=== PATIENT | female | born 1965 | race American Indian/Alaskan Native ===

== ENCOUNTER 2016-11-08 14:40 | Inpatient (IN) | payer OTHER ==
[2016-11-08] MEDS ORDERED: MORPHINE IV ONE (15:37)
[2016-11-08] MEDS ORDERED: ZOFRAN IV ONE (15:37)
[2016-11-08] MEDS ORDERED: NACL 0.9% 500 ML 500 ML IV ONE (15:37)
[2016-11-08 16:24] LABS: Basophils % (Auto) 0.3 % (0.0-1.8); Eosinophils % (Auto) 0.5 % (0.0-4.3); Hematocrit 23.4 % (30.3-42.9); Hemoglobin 7.2 gm/dl (10.1-14.3); Mean Corpuscular HGB Conc 31 % (30-34); Mean Corpuscular Hemoglobin 29 pg (28-32); Mean Corpuscular Volume 92 fl (79-97); Platelet Count 123 K/mm3 (140-440); Red Blood Count 2.54 M/mm3 (3.65-5.03); White Blood Count 7.9 K/mm3 (4.5-11.0)
[2016-11-08 16:25] LABS: Red Cell Distribution Width 20.8 % (13.2-15.2)
[2016-11-08 16:27] LABS: Anion Gap 19 mmol/L; Blood Urea Nitrogen 9 mg/dL (7-17); Calcium 9.4 mg/dL (8.4-10.2); Carbon Dioxide 28 mmol/L (22-30); Chloride 85.8 mmol/L (98-107); Glucose 102 mg/dL (65-100); Potassium 3.5 mmol/L (3.6-5.0); Sodium 129 mmol/L (137-145)
--- NOTE | 2016-11-08 17:34 | Emergency Department Report ---
HPI - General Chief Complaint: Chest Pain Time Seen by Provider: 11/08/16 15:21 - HPI HPI: The patient is a 51-year-old female with a significant history of stage 4 metastatic lung cancer, who presents for evaluation of chest pain. The patient reports constant chest pain since 1 PM earlier today, approximately 2 hours prior to my evaluation, constant since onset, midsternal in location, pressure- like in quality, 10/10 in severity. The patient denies trauma to the chest wall , fever, cough, dyspnea, syncope, hemoptysis, unilateral leg swelling, recent immobilization. ED Past Medical Hx - Past Medical History Hx of Cancer: Yes (brain, lung, pancreatic) - Social History Smoking Status: Never Smoker Substance Use Type: None - Medications Home Medications: Home Medications Medication Instructions Recorded Confirmed Last Taken Type Diltiazem [CarDIZEM] 60 mg PO TID 11/08/16 11/08/16 Unknown History HYDROmorphone [Dilaudid] 2 mg PO Q4HR 11/08/16 11/08/16 Unknown History LORazepam [Ativan] 1 mg PO TID PRN 11/08/16 11/08/16 Unknown History Metoclopramide [Reglan] 10 mg PO TID PRN 11/08/16 11/08/16 Unknown History Metoprolol [Lopressor] 25 mg PO BID 11/08/16 11/08/16 Unknown History ED Review of Systems ROS: Stated complaint: CHEST PAIN Other details as noted in HPI Constitutional: denies: fever ENT: denies: throat or neck pain Respiratory: denies: cough, shortness of breath Cardiovascular: reports: chest pain Endocrine: denies unexplained weight loss or gain Gastrointestinal: denies: abdominal pain, nausea Genitourinary: denies: dysuria Musculoskeletal: denies: leg swelling Skin: denies: rash Neurological: denies: headache Hematological/Lymphatic: denies: easy bleeding or easy bruising Psych: denies sadness or hopelessness Physical Exam - Physical Exam Vital Signs: Vital Signs 11/08/16 11/08/16 11/08/16 15:06 15:53 16:01 Temperature 97.3 F L Pulse Rate 132 H 138 H Respiratory 18 22 21 Rate Blood Pressure 105/63 Blood Pressure 118/72 [Left] O2 Sat by Pulse 95 97 97 Oximetry Physical Exam: General: well-nourished, well-developed, no acute distress Head: Normocephalic, atraumatic Eyes: normal sclera ENT: Mucous membranes are pink and moist Neck: trachea midline, neck supple, No neck stiffness, no cervical adenopathy Respiratory: Diminished breath sounds in crackles present to right lower lung field Cardio: S1 and S2 present, no murmurs, rubs, gallops, capillary refill is brisk Abdomen: Normoactive bowel sounds, soft abdomen, no rigidity, no guarding or rebound tenderness Chest WALL/Back: No tenderness to palpation of the chest wall, no CVA tenderness with percussion Musc: No pitting edema Skin: No rash Neuro: no facial drooping, normal speech Psych: Normal affect ED Course Vital Signs 11/08/16 11/08/16 11/08/16 15:06 15:53 16:01 Temperature 97.3 F L Pulse Rate 132 H 138 H Respiratory 18 22 21 Rate Blood Pressure 105/63 Blood Pressure 118/72 [Left] O2 Sat by Pulse 95 97 97 Oximetry ED Medical Decision Making - Lab Data Result diagrams: 11/08/16 15:50 11/08/16 15:50 - Medical Decision Making The patient was seen and examined by myself. The patient is placed on a monitor technician and continuous pulse ox. On initial evaluation, the patient was found to be in no distress. Evaluation orders were placed. X-ray of the chest reveals significant right lower pleural effusion and atelectasis of the right lower and middle lung lobes. The patient is given IV morphine for pain. Lab results reveal low hemoglobin of 7.2, and otherwise lab results were grossly unrevealing. The patient was reevaluated and reported the pain persisted. She is given a IV dose of fentanyl for pain. The on-call hospitalist service was contacted. They agreed to admit the patient for further treatment and close monitoring. The ED admit order was placed. The patient was admitted in guarded condition. Critical care attestation.: If time is entered above; I have spent that time in minutes in the direct care of this critically ill patient, excluding procedure time. ED Disposition Clinical Impression: Recurrent right pleural effusion, Atelectasis of right lung, Severe anemia Disposition: OP ADMITTED IP TO THIS HOSP Is pt being admited?: Yes Does the pt Need Aspirin: Yes Condition: Fair Instructions: Chest Pain (ED) Referrals: PRIMARY CARE, [Primary Care Provider] - 3-5 Days Time of Disposition: 17:34
[2016-11-08] MEDS ORDERED: NACL ONE (17:44)
[2016-11-08] MEDS ORDERED: BABY ASPIRIN PO ONE (18:12)
--- NOTE | 2016-11-08 18:28 | Cat Scan Report ---
FINAL REPORT EXAM: CT ANGIO CHEST HISTORY: chest pain, hx lung cancer, RLL collapse 09/2016 TECHNIQUE: CT imaging obtained through the chest in pulmonary angiographic phase following intravenous administration of contrast. Transaxial, Coronal and sagittal reformats are provided. PRIORS: None. FINDINGS: Large left thyroid nodule. Main pulmonary artery is within normal limits in caliber. Well opacified pulmonary arterial tree. No pulmonary embolism identified Thoracic aorta is normal in course and caliber. Moderate right pleural effusion. Right middle and lower lobar atelectasis. Marked narrowing of the bronchus intermedius and occlusion of the lower and middle lobe airways. Sub carinal lymphadenopathy. No pneumothorax. Imaged portion of the upper abdomen is remarkable for metastatic disease involving the left adrenal gland and possibly the pancreas. A gastrostomy tube is present. The gallbladder is hydropic with layering sludge. The superficial soft tissues are unremarkable. No acute bony abnormality or worrisome osseous lesions identified. IMPRESSION: No pulmonary embolism. Metastatic lung cancer complicated by right middle and right lower lung collapse. There is a moderate right pleural effusion. Additional details and description as above. Correlation with prior imaging is requested.
--- NOTE | 2016-11-08 18:37 | Admit Criteria Form ---
Admission Criteria Documentation: PLEURAL EFFUSION Clinical Indications for Admission to Inpatient Care (Place 'X' for any and all applicable criteria): Admission is indicated for ANY ONE of the following (1)(2)(3): [ ]I. Pneumonia-related effusion requiring drainage as indicated by ANY ONE of the following [A]: [ ]a) Large pleural effusion (symptomatic or greater than one-half of hemithorax) [ ]b) Loculated effusion [ ]c) Pleural thickening [ ]d) Pleural fluid analysis results, including ANY ONE of the following: [ ]i) Positive Gram stain or culture for bacteria [ ]ii) Pus [ ]iii) pH less than 7.20 [X]II. Inpatient admission required rather than observation care (Also use Pleural Effusion: Observation Care criteria as appropriate) because of ANY ONE of the following: [ ]a) Hemodynamic instability that is severe or persistent [ ]b) Respiratory distress that is severe or persistent [ ]c) Complication of drainage (e.g., pneumothorax) that requires inpatient care [ ]d) Etiology that requires inpatient care (e.g., pulmonary embolism , trauma) [X]e) Severe pain requiring acute inpatient management [ ]f) Supplemental O2 or respiration drug for over 24 hrs that are performable only in an inpatient setting [ ]g) Chest tube placement with active evacuation (e.g., suction, drainage) [ ]h) Pulmonary artery catheter monitoring [ ]i) Epidural analgesia (8) [ ]j) Continuous IV infusion of anticoagulation, platelet inhibitor, vasoactive, or antiarrhythmic medication. [ ]k) Other condition, treatment or monitoring requiring inpatient admission [ ]l) Immediate inpatient surgery [ ]III. Hemothorax [ ]IV. Empyema [ ]V. Pleural effusion with concomitant pneumothorax [X]. Recurrent or malignant pleural effusion requiring pleurodesis (4) Extended stay beyond goal length of stay may be needed for (27)(28): [ ]a) Empyema or complicated parapneumonic effusion (24)(29) [ ]b) Malignant pleural effusion (4) [ ]c) Pleural effusion due to trauma or perforated esophagus [ ]d) Pleural effusion due to pulmonary embolism (30) [ ]e) Clinically significant re-expansion pulmonary edema [ ]f) Hemothorax [ ]g) Renal failure [ ]h) Trapped lung (e.g., benign or malignant thickened pleura preventing lung re-expansion) (31) [ ]i) Underlying etiology necessitates ongoing inpatient care (e.g., pneumonia, heart failure, malignancy) [ ]j) Complications of thoracentesis, thoracostomy tube, or pleural cath. placement The original [facility] [employer] content created by [facility] [employer] has been revised. The portions of the content which have been revised are identified through the use of italic text or in bold, and [facility] has neither reviewed nor approved the modified material. All other unmodified content is copyright [facility] [employer]. Please see references footnoted in the original [facility] [employer] edition 2016 Admission Criteria Met: Yes
[2016-11-08] MEDS ORDERED: SUBLIMAZE IV ONE ×2 (19:33→20:00)
[2016-11-08] MEDS ORDERED: LOPRESSOR IV ONE ×2 (20:31→20:32)
[2016-11-09] MEDS: MORPHINE IV PRN ×4 (01:04→18:09)
[2016-11-09] MEDS ORDERED: NACL 0.9% 1000 ML 1,000 ML IV ONE (03:53)
[2016-11-09] MEDS ORDERED: SODIUM CHLORIDE FLUSH SYRINGE 10 ML IV PRN (03:55)
--- NOTE | 2016-11-09 03:55 | Event Note ---
Date: 11/08/16 See H/p in reports Chest pain -r/o PR Lung Ca with mets-Full code Recent XRT to Brain Hyponatremia Hypokalemia-supplemented
[2016-11-09 07:22] LABS: Creatine Kinase 67 units/L (30-135)
--- NOTE | 2016-11-09 07:23 | XRay Report ---
Single view chest: History: Chest pain. Findings: Cardiomegaly. Right heart border obscured by density right lower lobe probably from atelectasis and/or right pleural effusion. Tip of right central line in the superior vena cava. Impression: Findings as detailed above.
[2016-11-09 07:32] LABS: Creatine Kinase MB < 1.0 ng/mL (0.0-4.0)
[2016-11-09] MEDS ORDERED: NACL 0.9% 500 ML 500 ML IV ONE (08:20)
[2016-11-09] MEDS ORDERED: K-DUR PO ONE (08:32)
[2016-11-09] MEDS ORDERED: ATIVAN PO PRN (08:54)
[2016-11-09] MEDS ORDERED: REGLAN PO PRN (08:54)
--- NOTE | 2016-11-09 09:19 | History and Physical Report ---
CHIEF COMPLAINT: Chest pain since 1 p.m. HISTORY OF PRESENT ILLNESS: A 51-year-old female with stage IV metastatic neuroendocrine lung cancer, presents for evaluation of chest pain. Constant chest pain in the retrosternal, not radiating. Pain is about 10 on a scale of 10. No trauma. No shortness of breath. No chest wall tenderness present. No reflux. The patient has been getting radiation therapy till August and also chemotherapy till 05/2016. The patient follows up for lung cancer at [facility] in [place]. The patient is a full code. No prior cardiac history. No palpitations. No diaphoresis. SILVIA score is zero. PAST MEDICAL HISTORY: Significant for lung cancer with metastasis to the brain. SOCIAL HISTORY: Does not smoke, has 4 daughters, lives with them. PAST SURGICAL HISTORY: None. FAMILY HISTORY: Hypertension. CURRENT MEDICATIONS: Diltiazem 60 mg 3 times a day, Dilaudid 2 mg every 4 hours, lorazepam 1 mg p.o. t.i.d., Lopressor 25 mg p.o. b.i.d., Reglan 10 mg p.o. t.i.d. REVIEW OF SYSTEMS: CONSTITUTIONAL: Lost her hair and lost weight recently. No fever, no chills. HEENT: The patient has lost all her hair secondary to chemo and radiation therapy. The patient also had gamma radiation to the brain. NECK: No neck stiffness. CARDIOVASCULAR: Chest pain, retrosternal since 1:00 p.m. Pain is about 10/10. No diaphoresis. No palpitations. RESPIRATORY: No shortness of breath. No cough. GASTROINTESTINAL: No nausea, no vomiting, no diarrhea. GENITOURINARY: No dysuria, no flank pain. MUSCULOSKELETAL: No leg pains or muscle pains. SKIN: No rashes. CENTRAL NERVOUS SYSTEM: No syncope, no seizures. HEMATOLOGIC AND LYMPHATIC: No easy bleeding or bruising. PSYCHIATRIC: Denies anxiety and denies homicidal or suicidal ideation. A 14-point review of systems is done; otherwise, negative. PHYSICAL EXAMINATION: GENERAL: Middle-aged female, lying in bed quietly. VITAL SIGNS: Temperature is 97.3, pulse is 132, respirations are 18, and blood pressure is 105/63. HEENT: The patient is bald secondary to chemo and radiation therapy. Tongue is moist. NECK: Supple, no lymphadenopathy, no thyromegaly. CHEST: Lungs are clear to auscultation and percussion. Good air entry. CARDIOVASCULAR: S1, S2 heard. No gallop, no murmur, no rub. Apical impulse in left fifth intercostal space and midclavicular line. ABDOMEN: Soft and benign. No hepatosplenomegaly. No guarding, no rigidity. Hernial orifices are normal. EXTREMITIES: Good pedal pulses. No pedal edema. CENTRAL NERVOUS SYSTEM: Alert and oriented x 4. Nonfocal exam. SKIN: Normal. IMAGING AND LABORATORY DATA: Chest x-ray shows significant right pleural effusion and atelectasis of the right lower and middle lung lobe. No EKG was done. Labs shows significant for sodium of 129, potassium of 3.5, chloride of 85, bicarbonate of 28, BUN and creatinine of 9 and 0.3. Hemoglobin is 7.8, hematocrit is 23.4. ASSESSMENT AND PLAN: 1. Chest pain, rule out myocardial infarction, chest pain protocol. The patient did get Lexiscan in the morning. 2. Anemia secondary to lung cancer and metastasis; transfuse 1 unit of blood. 3. Hyponatremia, should correct with IV fluids. 4. Hypokalemia, supplemented. 5. Lung cancer with metastasis, discouraged about possible DNR and hospice. The family absolutely wants everything to be done, they do not want to discuss. 6. Deep venous thrombosis prophylaxis, Lovenox 40 mg subcutaneous daily. JOB# [id number] VSM/NTS
[2016-11-09 09:54] LABS: Anion Gap 17 mmol/L; Blood Urea Nitrogen 9 mg/dL (7-17); Calcium 8.9 mg/dL (8.4-10.2); Carbon Dioxide 27 mmol/L (22-30); Chloride 94.1 mmol/L (98-107); Glucose 91 mg/dL (65-100); Potassium 3.4 mmol/L (3.6-5.0); Sodium 135 mmol/L (137-145)
[2016-11-09] MEDS: LOPRESSOR PO SCH ×2 (13:00→23:19)
[2016-11-09] MEDS: CARDIZEM PO SCH ×2 (13:45→23:14)
[2016-11-09] MEDS ORDERED: NACL 0.9% 500 ML 500 ML ONE (13:57)
[2016-11-09] MEDS: DILAUDID PO SCH ×4 (14:10→23:13)
[2016-11-09] MEDS ORDERED: SIMPLE SYRUP FEEDTUBE PRN ×2 (14:52)
[2016-11-09] MEDS ORDERED: PANCREAZE DR 10,500 UNIT FEEDTUBE PRN (14:52)
[2016-11-09] MEDS ORDERED: SODIUM BICARBONATE FEEDTUBE PRN (14:52)
--- NOTE | 2016-11-09 15:28 | Progress Note ---
Assessment and Plan Assessment and plan: Right-sided chest pain likely due to underlying stage IV lung cancer * Patient currently under hospice service * Discussed with family members in details * We'll continue to manage pain and will adjust medications * Hematologic and oncology consulted Anemia secondary to underlying malignancy * Transfuse 1 unit and monitor H&H Dehydration with hyponatremia and hypokalemia * Continue IV fluid hydration and replace electrolytes as needed * Monitor BMP Stage IV lung cancer * Patient has multiple hospitalization in the past * She was treated with radiation and chemotherapy back in May but treatment was stopped because the cancer was already advanced stage * 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 s/p palliative radiation therapy on September * We'll follow oncology recommendations Right pleural effusion * This is recurrent for her * We'll do ultrasound-guided thoracentesis Right lower extremity DVT status post IVC filter placement * Not a candidate for anticoagulation with a history of metastatic brain tumor * CT of the chest did not show any PE GI and DVT prophylaxis * On Lovenox and Protonix Severe protein calorie malnutrition * Tube feeding per dietary recommendation History Interval history: Patient seen and examined. Medical records and medication list reviewed. No acute event overnight noted by the RN. Patient continued to complaints of right-sided chest pain She has history of stage IV lung cancer metastases to brain Her last radiation therapy was on September for metastatic brain cancer She was also placed on IVC filter at the end of September for right lower extremity DVT Discussed plan of care at bedside with patient and her family. Hospitalist Physical - Physical exam Narrative exam: GENERAL: Elderly well-nourished -[place] female lying on bed appeared to be in no discomfort. HEENT: Normocephalic. Atraumatic. No conjunctival congestion or icterus. Patient has moist mucous membranes. NECK: Supple. Trachea midline. CHEST/LUNGS: Diminished breath sounds at the right lower lung field, breathing nonlabored. No wheezes crackles or rhonchi. Port-A-Cath in place HEART/CARDIOVASCULAR: Regular in rate and rhythm. S1 and S2 positive. ABDOMEN: Abdomen is soft, nontender. Patient has normal bowel sounds. PEG tube on place. SKIN: There is no rash. Warm and dry. NEURO: No focal motor deficit. Follows command. MUSCULOSKELETAL: No joint effusion or tenderness. Generalized muscle wasting EXTRIMITY: No edema, no cyanosis or clubbing. PSYCH: Cooperative. - Constitutional Vitals: Temp Pulse Resp BP Pulse Ox 98.7 F 137 H 18 104/67 100 11/09/16 12:00 11/09/16 13:45 11/09/16 12:00 11/09/16 13:45 11/09/16 12:00 Results - Labs CBC & Chem 7: 11/08/16 15:50 11/09/16 08:15 Labs: Laboratory Last Values WBC 7.9 K/mm3 (4.5-11.0) 11/08/16 15:50 RBC 2.54 M/mm3 (3.65-5.03) L 11/08/16 15:50 Hgb 7.2 gm/dl (10.1-14.3) L 11/08/16 15:50 Hct 23.4 % (30.3-42.9) L 11/08/16 15:50 MCV 92 fl (79-97) 11/08/16 15:50 MCH 29 pg (28-32) 11/08/16 15:50 MCHC 31 % (30-34) 11/08/16 15:50 RDW 20.8 % (13.2-15.2) H 11/08/16 15:50 Plt Count 123 K/mm3 (140-440) L 11/08/16 15:50 Lymph % (Auto) 11.8 % (13.4-35.0) L 11/08/16 15:50 [place] % (Auto) 8.8 % (0.0-7.3) H 11/08/16 15:50 Eos % (Auto) 0.5 % (0.0-4.3) 11/08/16 15:50 Baso % (Auto) 0.3 % (0.0-1.8) 11/08/16 15:50 Lymph # 0.9 K/mm3 (1.2-5.4) L 11/08/16 15:50 [place] # 0.7 K/mm3 (0.0-0.8) 11/08/16 15:50 Eos # 0.0 K/mm3 (0.0-0.4) 11/08/16 15:50 Baso # 0.0 K/mm3 (0.0-0.1) 11/08/16 15:50 Seg Neutrophils % 78.6 % (40.0-70.0) H 11/08/16 15:50 Seg Neutrophils # 6.2 K/mm3 (1.8-7.7) 11/08/16 15:50 Sodium 135 mmol/L (137-145) L 11/09/16 08:15 Potassium 3.4 mmol/L (3.6-5.0) L 11/09/16 08:15 Chloride 94.1 mmol/L (98-107) L 11/09/16 08:15 Carbon Dioxide 27 mmol/L (22-30) 11/09/16 08:15 Anion Gap 17 mmol/L 11/09/16 08:15 BUN 9 mg/dL (7-17) 11/09/16 08:15 Creatinine 0.3 mg/dL (0.7-1.2) L 11/09/16 08:15 Estimated GFR > 60 ml/min 11/09/16 08:15 BUN/Creatinine Ratio 30.00 % 11/09/16 08:15 Glucose 91 mg/dL (65-100) 11/09/16 08:15 POC Glucose 97 (70-105) 11/09/16 11:52 Calcium 8.9 mg/dL (8.4-10.2) 11/09/16 08:15 Total Creatine Kinase 67 units/L (30-135) 11/09/16 07:00 CK-MB (CK-2) < 1.0 ng/mL (0.0-4.0) 11/09/16 07:00 CK-MB (CK-2) Rel Index 1.4 (0-4) 11/09/16 07:00 Troponin T < 0.010 ng/mL (0.00-0.029) 11/09/16 07:00 Blood Type A POSITIVE 11/09/16 08:15 Antibody Screen Negative 11/09/16 08:15 Crossmatch See Detail 11/09/16 08:15 - Imaging and Cardiology Chest x-ray: report reviewed CT scan - chest: report reviewed
--- NOTE | 2016-11-09 16:06 | Hem/Onc Progress Note ---
Assessment and Plan - Patient Problems (1) Recurrent right pleural effusion Current Visit: Yes Status: Acute Plan to address problem: She has terminal lung cancer. Recommend palliative care. Family understands. Subjective Date of service: 11/09/16 Interval history: Met with patient with 3 family members. Patient with history of lung cancer treated at multiple hospitals and oncologists, [facility] and Cancer treatment centers [facility]. Terminal and advised hospice multiple times. HAs brain mets treated with radiation ,but never recovered. Objective - Exam Narrative Exam: Not responsive - Constitutional Vitals: Last Vital Signs Temp 99.2 F 11/09/16 15:00 Pulse 132 H 11/09/16 15:00 Resp 18 11/09/16 15:00 BP 112/58 11/09/16 15:00 Pulse Ox 95 11/09/16 15:00 General appearance: cachectic - Respiratory Respiratory effort: Positive: normal Respiratory: bilateral: CTA - Cardiovascular Rhythm: regular - Labs Lab Results: Laboratory Results - last 24 hr 11/09/16 11/09/16 11/09/16 00:30 07:00 08:15 Sodium Potassium Chloride Carbon Dioxide Anion Gap BUN Creatinine Estimated GFR BUN/Creatinine Ratio Glucose POC Glucose 97 Calcium Total Creatine Kinase 67 CK-MB (CK-2) < 1.0 CK-MB (CK-2) Rel Index 1.4 Troponin T < 0.010 Blood Type A POSITIVE Antibody Screen Negative Crossmatch See Detail 11/09/16 11/09/16 11/09/16 08:15 08:21 11:52 Sodium 135 L Potassium 3.4 L Chloride 94.1 L Carbon Dioxide 27 Anion Gap 17 BUN 9 Creatinine 0.3 L Estimated GFR > 60 BUN/Creatinine Ratio 30.00 Glucose 91 POC Glucose 90 97 Calcium 8.9 Total Creatine Kinase CK-MB (CK-2) CK-MB (CK-2) Rel Index Troponin T Blood Type Antibody Screen Crossmatch
[2016-11-09] MEDS ORDERED: PERCOCET 5/325 PO PRN (16:44)
[2016-11-09] MEDS ORDERED: KCL 30 MEQ in D5NS 1,000 ML IV SCH (16:45)
[2016-11-09] MEDS ORDERED: DURAGESIC TD SCH (17:00)
[2016-11-10] MEDS: DILAUDID PO SCH ×2 (03:32→08:46)
[2016-11-10 05:21] LABS: Basophils % (Auto) 0.3 % (0.0-1.8); Hematocrit 24.8 % (30.3-42.9); Hemoglobin 7.8 gm/dl (10.1-14.3); Mean Corpuscular HGB Conc 31 % (30-34); Mean Corpuscular Hemoglobin 29 pg (28-32); Mean Corpuscular Volume 92 fl (79-97); Platelet Count 104 K/mm3 (140-440); Red Cell Distribution Width 19.7 % (13.2-15.2); White Blood Count 5.3 K/mm3 (4.5-11.0)
[2016-11-10 05:31] LABS: INR 1.3 (0.87-1.13)
[2016-11-10 05:32] LABS: Partial Thromboplastin Time 34.2 Sec. (24.2-36.6)
[2016-11-10 05:41] LABS: Anion Gap 14 mmol/L; Blood Urea Nitrogen 8 mg/dL (7-17); Calcium 8.6 mg/dL (8.4-10.2); Carbon Dioxide 27 mmol/L (22-30); Chloride 97.3 mmol/L (98-107); Glucose 107 mg/dL (65-100); Potassium 3.6 mmol/L (3.6-5.0); Sodium 135 mmol/L (137-145)
[2016-11-10 05:56] LABS: Creatine Kinase MB < 1.0 ng/mL (0.0-4.0)
[2016-11-10 05:57] LABS: Creatine Kinase 74 units/L (30-135)
[2016-11-10] MEDS: LOPRESSOR PO SCH (10:30)
--- NOTE | 2016-11-10 11:35 | Ultrasound Report ---
ULTRASOUND THORACENTESIS INDICATION: Right pleural effusion. Lung cancer. COMPARISON: None similar. FINDINGS: Ultrasound guided right thoracentesis performed. Consent for the procedure obtained from the patient's relative(niece) after explaining the risks and benefits. Patient brought in the ultrasound room. An appropriate skin site marked. Using standard sterile precautions and 1% lidocaine for local anesthesia, 5 [place] Yueh catheter advanced into the pleural fluid. Total of approximately 550 cc of yellow serous fluid obtained with no sample sent to the lab. Catheter removed and hemostasis achieved. Patient returned to her room. No immediate complications. CONCLUSION: Status post right thoracentesis, as described. A 2 hour post procedure chest x-ray ordered. Dr. Vance present for and performed the entire procedure. Thank you for the opportunity to participate in this patient's care.
--- NOTE | 2016-11-10 11:35 | Procedure Note ---
Date of procedure: 11/10/16 Pre-op diagnosis: Pleural effusion, Lung ca Post-op diagnosis: same Procedure: US guided right thoracentesis Findings: 550 cc yellow serous fluid removed. Anesthesia: local Surgeon: ALFRED BETTS Estimated blood loss: none Specimen disposition: discarded Condition: stable Disposition: floor (2 hr post proc CXR ordered)
--- NOTE | 2016-11-10 13:35 | XRay Report ---
PORTABLE CHEST INDICATION: Status post right thoracentesis. COMPARISON: 11/08/2016 FINDINGS: Portable, frontal chest radiograph demonstrates stable cardiomediastinal silhouette, partly obscured on the right secondary to right hilar and lower lung consolidation/mass. Right hemidiaphragm remains obscured with stable right chest port tip about the cavoatrial junction. Mild left lower lung atelectasis also again seen. EKG leads. Demineralized bones. Catheter/tube like density again noted overlying the stomach/upper abdomen. CONCLUSION: No acute complication following right thoracentesis with various stable findings, as above. Thank you for the opportunity to participate in this patient's care.
--- NOTE | 2016-11-10 15:19 | Discharge Summary ---
Providers - Providers Date of Admission: 11/08/16 19:16 Date of discharge: 11/10/16 Attending physician: TRAVON GERMAN 11/09/16 Consult to Cardiac Rehabilitation [CONS] Routine Reason For Exam: Phase I 11/09/16 03:53 Consult to Physician [CONS] Routine Consulting Provider: AGUEDA CAMACHO Reason For Exam: Lung ca Place consult to:: Fernandez Notified:: yes Phone number called:: [phone] If yes, spoke with:: Harry Time called:: 08:10 11/09/16 10:40 Consult to Dietitian/Nutrition [CONS] Routine Physician Instructions: Reason For Exam: Manage feeding tube Reason for Consult: manage feeding tube Primary care physician: T[employer] Hospitalization Condition: Fair Hospital course: Discharge Diagnosis: Right-sided chest pain likely due to underlying stage IV lung cancer * Patient currently under hospice service * Discussed with family members in details * patient will have continue to get pain management by hospice Anemia secondary to underlying malignancy * s/p Transfusion of 1 unit of PRBC Dehydration with hyponatremia and hypokalemia * s/p IV fluid hydration and replaced electrolytes Stage IV lung cancer * Patient has multiple hospitalization in the past * She was treated with radiation and chemotherapy back in May but treatment was stopped because the cancer was already advanced stage * 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 s/p palliative radiation therapy on September * oncology recommended palliative/hospice care Right pleural effusion * This is recurrent for her * s/p ultrasound-guided thoracentesis drained 550cc of fluid Right lower extremity DVT status post IVC filter placement * Not a candidate for anticoagulation with a history of metastatic brain tumor * CT of the chest did not show any PE GI and DVT prophylaxis * maintained On Lovenox and Protonix Severe protein calorie malnutrition * Tube feeding per dietary recommendation Disposition: DC TO HOSPICE (HOME) Time spent for discharge: 35 minutes Core Measure Documentation - Palliative Care Palliative Care/ Comfort Measures: Hospice Care - Core Measures Any of the following diagnoses?: none Exam - Physical Exam Narrative exam: GENERAL: Elderly well-nourished -[place] female lying on bed appeared to be in no discomfort. HEENT: Normocephalic. Atraumatic. No conjunctival congestion or icterus. Patient has moist mucous membranes. NECK: Supple. Trachea midline. CHEST/LUNGS: Diminished breath sounds at the right lower lung field, breathing nonlabored. No wheezes crackles or rhonchi. Port-A-Cath in place HEART/CARDIOVASCULAR: Regular in rate and rhythm. S1 and S2 positive. ABDOMEN: Abdomen is soft, nontender. Patient has normal bowel sounds. PEG tube on place. SKIN: There is no rash. Warm and dry. NEURO: No focal motor deficit. Follows command. MUSCULOSKELETAL: No joint effusion or tenderness. Generalized muscle wasting EXTRIMITY: No edema, no cyanosis or clubbing. PSYCH: Cooperative. - Constitutional Vitals: Temp Pulse Resp BP Pulse Ox 98.5 F 114 H 17 95/62 99 11/10/16 08:51 11/10/16 08:51 11/10/16 08:51 11/10/16 08:51 11/10/16 08:51 Plan Activity: up only with assistance, fall precautions Weight Bearing Status: Non-Weight Bearing Diet: per dietitian instruction (TUBE FEEDING) Follow up with: PRIMARY CARE, [Primary Care Provider] - 3-5 Days Prescriptions: fentaNYL [Duragesic] 75 mcg TD Q3D #10 patch
[2016-11-10 16:01] VITALS: BP 99/58
== END 2016-11-10 05:30 | disposition hospice, home (50) | DRG 180 ==
LOC: ED 14:40 → 2B-SURG 19:16
PROVIDERS: ADMIT Internal Medicine; ATTEND Internal Medicine
PROC: 30233N1 Transfusion of Nonautologous Red Blood Cells into Peripheral Vein, Percutaneous Approach (ICD-10-PCS; 2016-11-09)
PROC: 0W993ZZ Drainage of Right Pleural Cavity, Percutaneous Approach (ICD-10-PCS; principal; 2016-11-10)
DX: C34.90 Malignant neoplasm of unspecified part of unspecified bronchus or lung (principal); E43 Unspecified severe protein-calorie malnutrition; J91.0 Malignant pleural effusion; E87.1 Hypo-osmolality and hyponatremia; R07.9 Chest pain, unspecified; E87.6 Hypokalemia; D63.0 Anemia in neoplastic disease; E86.0 Dehydration; Z68.27 Body mass index [BMI] 27.0-27.9, adult; Z91.040 Latex allergy status; Z79.899 Other long term (current) drug therapy; Z86.718 Personal history of other venous thrombosis and embolism; Z51.5 Encounter for palliative care
CPT/HCPCS: 32555; 36415; 71010; 71275; 80048; 82550; 82553; 82962; 84484; 85025; 85610; 85730; 86850; 86900; 86901; 86920; 93005; 93010; 96361; 96374; 96375; J2270; J2405; J3010; J3480; J7030; J7040; J7042; P9016; Q9967

== ENCOUNTER 2016-11-25 08:52 | Emergency (ER) | payer OTHER ==
--- NOTE | 2016-11-25 09:30 | Emergency Department Report ---
ED CPR HPI - General Chief Complaint: Cardiac Arrest/CPR Stated Complaint: CARDIAC ARREST Time Seen by Provider: 11/25/16 09:25 Source: EMS Mode of arrival: Stretcher Limitations: Other - History of Present Illness Initial Comments: According to paramedics he found this patient pulseless and apneic on their arrival. They stated the family was unaware of her absence of signs of life. They confirm the family's desire for resuscitation despite this patient having end-stage cancer and a G tube. EMS proceeded with standard ACLS protocols to include endotracheal intubation and medication. The patient remained in asystole for at least a half an hour prior to arrival. She arrived in asystole. MD Complaint: found unresponsive (according to and the patient was breathing prior to medic arrival) -: minute(s) Place: home Bystander CPR Performed: No Initial Findings in the Field: unresponsive, no pulse, systole (asystole) ROSC in the Field: No Associated Injuries: No Associated Symptoms: shortness of breath Treatments Prior to Arrival: intubation, epinephrine mgs # - Related Data Home Medications Medication Instructions Recorded Confirmed Last Taken Diltiazem [Cardizem] 60 mg PO TID 11/08/16 11/17/16 11/17/16 HYDROmorphone [Dilaudid] 2 mg PO Q4HR 11/08/16 11/17/16 11/17/16 LORazepam [Ativan] 1 mg PO TID PRN 11/08/16 11/17/16 11/17/16 Metoclopramide [Reglan TAB] 10 mg PO TID PRN 11/08/16 11/17/16 11/17/16 Metoprolol [Lopressor TAB] 25 mg PO BID 11/08/16 11/17/16 11/17/16 Hyoscyamine Sulfate [Hyoscyamine 0.125 mg PO Q4H PRN 11/17/16 11/17/16 11/17/16 Rapdis 0.125 mg] Previous Rx's Medication Instructions Recorded Last Taken Type fentaNYL [Duragesic] 75 mcg TD Q3D #10 patch 11/10/16 11/17/16 Rx Allergies Allergy/AdvReac Type Severity Reaction Status Date / Time latex Allergy Hives Verified 11/08/16 15:09 ED Review of Systems ROS: Stated complaint: CARDIAC ARREST Other details as noted in HPI Comment: Unobtainable due to pts medical conditions ED Past Medical Hx - Past Medical History Hx Congestive Heart Failure: No Hx Diabetes: Yes Hx Asthma: No Hx COPD: No Hx HIV: No - Surgical History Additional Surgical History: port to right chest - Social History Smoking Status: Never Smoker - Medications Home Medications: Home Medications Medication Instructions Recorded Confirmed Last Taken Type Diltiazem [Cardizem] 60 mg PO TID 11/08/16 11/17/16 11/17/16 History HYDROmorphone [Dilaudid] 2 mg PO Q4HR 11/08/16 11/17/16 11/17/16 History LORazepam [Ativan] 1 mg PO TID PRN 11/08/16 11/17/16 11/17/16 History Metoclopramide [Reglan TAB] 10 mg PO TID PRN 11/08/16 11/17/16 11/17/16 History Metoprolol [Lopressor TAB] 25 mg PO BID 11/08/16 11/17/16 11/17/16 History fentaNYL [Duragesic] 75 mcg TD Q3D #10 patch 11/10/16 11/17/16 11/17/16 Rx Hyoscyamine Sulfate [Hyoscyamine 0.125 mg PO Q4H PRN 11/17/16 11/17/16 11/17/16 History Rapdis 0.125 mg] ED Physical Exam - General Limitations: Other General appearance: cachectic - Head Head exam: Present: other (alopecia) - ENT ENT exam: Present: other (endotracheal tube) - Neck Neck exam: Present: normal inspection - Respiratory Respiratory exam: Present: decreased breath sounds - Cardiovascular Cardiovascular Exam: Present: other (no cardiac activity) - GI/Abdominal GI/Abdominal exam: Present: soft, other (G-tube noted) - Extremities Exam Extremities exam: Present: other (no evidence of injury) - Neurological Exam Neurological exam: Present: other (her GCS is 3) - Skin Skin exam: Present: warm ED Course - Reevaluation(s) Reevaluation #1: The patient is obviously on arrival. The family was counseled as further resuscitative efforts are obviously futile. 11/25/16 09:30 Critical care attestation.: If time is entered above; I have spent that time in minutes in the direct care of this critically ill patient, excluding procedure time. ED Disposition Clinical Impression: Cardiac arrest, Metastatic cancer Disposition: Is pt being admited?: No Does the pt Need Aspirin: No Condition: Stable Referrals: PRIMARY CARE, [Primary Care Provider] - 3-5 Days Time of Disposition: 09:31
== END 2016-11-25 12:10 ==
LOC: ED 08:52
DX: I46.9 Cardiac arrest, cause unspecified (principal); C80.1 Malignant (primary) neoplasm, unspecified; C79.9 Secondary malignant neoplasm of unspecified site; E11.9 Type 2 diabetes mellitus without complications; Z91.040 Latex allergy status
CPT/HCPCS: 99285